=== PATIENT | female | born 1995 | race African-American/Black ===

== ENCOUNTER 2019-01-18 17:54 | Emergency (ER) | payer OTHER ==
[~2019-01-18] VITALS: Ht 160 cm; Wt 52.6 kg
[2019-01-18 17:54] VITALS: BP 98/63
== END 2019-01-18 19:00 | disposition home or self-care (01) ==
LOC: ER 17:54
DX: G89.29 Other chronic pain (principal); M25.571 Pain in right ankle and joints of right foot

== ENCOUNTER 2019-06-17 17:12 | Emergency (ER) | payer OTHER ==
[~2019-06-17] VITALS: Ht 162.6 cm; Wt 63.5 kg
[2019-06-17 17:34] LABS: URINE BILIRUBIN NEGATIVE (Negative); URINE BLOOD 2+ (Negative); URINE COLOR YELLOW; URINE GLUCOSE-RANDOM* NEGATIVE (Negative); URINE KETONES NEGATIVE (Negative); URINE PROTEIN (DIPSTICK) 1+ (Negative); URINE SPECIFIC GRAVITY 1.025 (1.005-1.035); URINE UROBILINOGEN 0.2 E.U./dl (0.2-1.0)
[2019-06-17 17:36] LABS: URINE LEUKOCYTES-REFLEX 2+ (Negative); URINE NITRITE-REFLEX POSITIVE (Negative)
[2019-06-17 17:37] LABS: URINE CLARITY HAZY
[2019-06-17 17:40] LABS: SQUAMOUS 0-3 Few /LPF (0-3)
[2019-06-17 17:41] LABS: BACTERIA-REFLEX >30 Many /HPF (None Seen); CASTS None Seen /LPF (None Seen); CRYSTALS None Seen /LPF (None Seen); URINE WBC-REFLEX >25 Many /HPF (0-5)
[2019-06-17] MEDS ORDERED: MACROBID 100 M100 MG PO (19:35)
[2019-06-17] MEDS ORDERED: PHENAZOPYRIDIN200 M2 PO (19:35)
[2019-06-17] MEDS ORDERED: MOBIC7.5 MG PO (19:35)
[2019-06-17 19:49] VITALS: BP 122/58
== END 2019-06-17 19:49 | disposition home or self-care (01) ==
LOC: ER 17:12
PROVIDERS: Emergency Medicine
DX: N39.0 Urinary tract infection, site not specified (principal)

== ENCOUNTER 2019-11-12 18:21 | Emergency (ER) | payer OTHER ==
[~2019-11-12] VITALS: Ht 160 cm; Wt 62.6 kg
[~2019-11-12 18:21] MED LIST: MACROBID 100 M100 MG PO; MOBIC7.5 MG PO; PHENAZOPYRIDIN200 M2 PO
[2019-11-12 18:50] LABS: URINE BILIRUBIN NEGATIVE (Negative); URINE BLOOD TRACE (Negative); URINE CLARITY CLEAR; URINE COLOR YELLOW; URINE GLUCOSE-RANDOM* NEGATIVE (Negative); URINE KETONES 3+ (Negative); URINE LEUKOCYTES-REFLEX 2+ (Negative); URINE NITRITE-REFLEX POSITIVE (Negative); URINE PROTEIN (DIPSTICK) TRACE (Negative); URINE SPECIFIC GRAVITY 1.025 (1.005-1.035)
[2019-11-12 18:53] LABS: URINE REDUCING SUBSTANCE NEGATIVE
[2019-11-12 19:00] LABS: BACTERIA-REFLEX >30 Many /HPF (None Seen); CASTS None Seen /LPF (None Seen); CRYSTALS None Seen /LPF (None Seen); SQUAMOUS 0-3 Few /LPF (0-3); URINE RBC 0-2 Rare /HPF (0-2); URINE WBC-REFLEX >25 Many /HPF (0-5)
[2019-11-12 19:49] LABS: CALCIUM 8.7 mg/dL (8.5-10.1); CREATININE 0.6 mg/dL (0.6-1.0); POTASSIUM 3.1 mmol/L (3.5-5.1)
[2019-11-12 19:54] LABS: ABSOLUTE NEUTROPHILS 9.7 thou/uL (1.4-8.2); BASOPHILS 0.3 % (0.0-2.0); EOSINOPHILS 0.2 % (0.0-3.0); HEMATOCRIT 34.5 % (37.0-47.0); HEMOGLOBIN 11.5 gm/dL (12.0-15.0); LYMPHOCYTES 7.7 % (24.0-44.0); MCH 31.4 pg (26.0-34.0); MCHC 33.4 g/dL (28.0-37.0); MCV 93.8 fL (80.0-100.0); MONOCYTES 9.3 % (1.0-8.0); PLATELET COUNT 294 thou/uL (150-400); POLYS 82.5 % (36.0-66.0); RBC 3.68 mil/uL (4.20-5.00); RDW 12.8 % (10.5-14.5); WBC 11.8 thou/uL (4.0-11.0)
[2019-11-12] MEDS ORDERED: VITAFOL-OB+DHA1 EACH PO (21:43)
[2019-11-12] MEDS ORDERED: KEFLEX500 M1 PO (21:43)
[2019-11-12] MEDS ORDERED: ZOFRAN ODT4 MG DISSOLVE (21:44)
[2019-11-12 22:05] VITALS: BP 115/67
== END 2019-11-12 22:05 | disposition home or self-care (01) ==
LOC: ER 18:21
PROVIDERS: Physician Assistant
DX: O23.41 Unspecified infection of urinary tract in pregnancy, first trimester (principal); O20.0 Threatened abortion; Z3A.01 Less than 8 weeks gestation of pregnancy

== ENCOUNTER 2020-02-23 06:54 | Inpatient (IN) | payer OTHER ==
[~2020-02-23] VITALS: Ht 162.6 cm; Wt 68.9 kg
[~2020-02-23 06:54] MED LIST changes: +KEFLEX500 M1 PO; +VITAFOL-OB+DHA1 EACH PO; +ZOFRAN ODT4 MG DISSOLVE
[2020-02-23 06:58] VITALS: BP 89/60
[2020-02-23 07:58] LABS: ABSOLUTE NEUTROPHILS 14.4 thou/uL (1.4-8.2); BASOPHILS 0.2 % (0.0-2.0); EOSINOPHILS 0.1 % (0.0-3.0); HEMATOCRIT 31.5 % (37.0-47.0); HEMOGLOBIN 10.5 gm/dL (12.0-15.0); LYMPHOCYTES 3.8 % (24.0-44.0); MCH 30.7 pg (26.0-34.0); MCHC 33.3 g/dL (28.0-37.0); MCV 92.1 fL (80.0-100.0); MONOCYTES 10.4 % (1.0-8.0); PLATELET COUNT 333 thou/uL (150-400); POLYS 85.5 % (36.0-66.0); RBC 3.42 mil/uL (4.20-5.00); RDW 13.1 % (10.5-14.5); WBC 16.9 thou/uL (4.0-11.0)
[2020-02-23 07:58] LABS: URINE BILIRUBIN NEGATIVE (Negative); URINE BLOOD 1+ (Negative); URINE CLARITY CLOUDY; URINE COLOR YELLOW; URINE GLUCOSE-RANDOM* NEGATIVE (Negative); URINE KETONES 3+ (Negative); URINE PROTEIN (DIPSTICK) 1+ (Negative)
[2020-02-23 08:02] LABS: URINE LEUKOCYTES-REFLEX 3+ (Negative); URINE NITRITE-REFLEX POSITIVE (Negative); URINE REDUCING SUBSTANCE NEGATIVE
[2020-02-23 08:03] LABS: BACTERIA-REFLEX >30 Many /HPF (None Seen); CASTS None Seen /LPF (None Seen); CRYSTALS None Seen /LPF (None Seen); SQUAMOUS 0-3 Few /LPF (0-3); URINE RBC 0-2 Rare /HPF (0-2)
[2020-02-23 08:04] LABS: CALCIUM 8.8 mg/dL (8.5-10.1); CREATININE 0.5 mg/dL (0.6-1.0); POTASSIUM 3.2 mmol/L (3.5-5.1)
[2020-02-23 08:10] LABS: ALBUMIN 2.3 g/dL (3.4-5.0); TOTAL BILIRUBIN 0.6 mg/dL (0.2-1.0); TOTAL PROTEIN 7.4 g/dL (6.4-8.2)
--- NOTE | 2020-02-23 09:09 | EKG ---
[facility] [place] [address] ELECTROCARDIOGRAM REPORT Name: HILTON ESQUIVEL Room #: [facility]..#: [id number] Admission: Attend Phys: Discharge: Date of : [birth year] Report #: [id number] THIS REPORT FOR: cc: KYE - Polly family physician/PCP KYE - Polly family physician/PCP Abrahan Huang MD [facility] ~ THIS REPORT FOR: //name// [facility] ED Test Date: 2020-02-23 Test Time: 07:24:51 Pat Name: HILTON ESQUIVEL Department: Room: Gender: F Argon Tester: lexa : 1995 Requested By: Rui Li Order Number: [id number] MD: Abrahan Huang Measurements Intervals [place] Rate: 118 P: 64 WI: 136 QRS: 41 QRSD: 80 T: 29 QT: 317 QTc: 445 Interpretive Statements Sinus tachycardia Borderline T wave abnormalities Baseline wander in lead(s) II,III,aVR,aVF No previous ECG available for comparison Electronically Signed On 02-23-2020 9:09:27 SUPERVISOR TYPE DISK QUALITY CONTROL by Abrahan Huang [email or web address] <ELECTRONICALLY SIGNED> By: Abrahan Huang MD, [facility] 02/23/2009 3 3 Abrahan Huang MD, FACC /EPI
[2020-02-23 12:14] VITALS: BP 101/67
[2020-02-23 13:21] VITALS: BP 104/67
[2020-02-23 17:14] VITALS: BP 93/55
[2020-02-23 19:08] VITALS: BP 95/60
--- NOTE | 2020-02-23 19:43 | NUR ---
Assumed pt care this am, VS stable, nausea and vomiting noted. Pain is managed with medications. Partial relief noted. Seen by surgery. endorsed to the night nurse.
--- NOTE | 2020-02-23 21:37 | NUR ---
AXOX4. INDEPENDENT WITH ADLs. PAIN MANAGED PER MD ORDER. NO S/S ACUTE DISTRESS NOTED OR REPORTED AT THIS TIME. CARE TRANSFERRED TO ANOTHER NURSE AT THIS TIME.
[2020-02-24 06:21] LABS: HEMATOCRIT 27.3 % (37.0-47.0); HEMOGLOBIN 9.1 gm/dL (12.0-15.0); MCH 30.9 pg (26.0-34.0); MCHC 33.2 g/dL (28.0-37.0); MCV 93.1 fL (80.0-100.0); RBC 2.93 mil/uL (4.20-5.00); RDW 12.9 % (10.5-14.5); WBC 13.4 thou/uL (4.0-11.0)
[2020-02-24 06:32] LABS: CALCIUM 8.2 mg/dL (8.5-10.1); CREATININE 0.5 mg/dL (0.6-1.0); POTASSIUM 3.3 mmol/L (3.5-5.1)
[2020-02-24 08:02] VITALS: BP 93/55
--- NOTE | 2020-02-24 13:19 | NUR ---
Received awake on bed. Due medications given as prescribed, able to swallow meds w/o difficulty. On room air. Vital signs stable. On MS, not on telemetry; no complains and signs of chest pain. On regular diet- tolerating well; no nausea, no vomiting noted. Continent of bowel and bladder, able to go to the toilet independently. Complained of pain, due PRN pain meds given as prescribed. With SL at L AC- intact and flushing well; on IV antibiotics. To continue monitoring patient.
[2020-02-24 14:34] VITALS: BP 98/55
[2020-02-24 16:41] VITALS: BP 94/63
[2020-02-24 20:51] VITALS: BP 101/61
--- NOTE | 2020-02-24 22:34 | NUR ---
1900 ASSUMED CARE OF PT AFTER BEDSIDE REPORT. 2099 BASELINE ASSESSMENT COMPLETED, PT PAINFUL WITH AMBULATION PAIN MEDS GIVEN PER JUN. PT STATES PAIN IS THE SAME SHE HAS EXPERIENCED FOR DAYS TO FLANK, NO NEW PAIN, NO BLOOD NOTICED WITH URINATION, WILL CONTINUE TO MONITOR WITH HOURLY ROUNDING
[2020-02-25 06:58] LABS: HEMATOCRIT 29.8 % (37.0-47.0); MCHC 33.5 g/dL (28.0-37.0); MCV 92.6 fL (80.0-100.0); RBC 3.22 mil/uL (4.20-5.00); WBC 9.2 thou/uL (4.0-11.0)
[2020-02-25 07:03] LABS: CALCIUM 9.1 mg/dL (8.5-10.1); CREATININE 0.6 mg/dL (0.6-1.0); POTASSIUM 3.8 mmol/L (3.5-5.1)
[2020-02-25 10:33] VITALS: BP 82/47
--- NOTE | 2020-02-25 10:58 | NUR ---
Received awake on bed. Due medications given as prescribed, able to swallow meds w/o difficulty. On room air. On MS, not on telemetry; no complains and signs of chest pain, crushing sensation and heaviness. On regular diet- tolerating well; no nausea, no vomiting and no abdominal pain noted. Continent of bowel and bladder, able to go to the toilet independently. With SL at L AC- intact and flushing well; on IV antibiotics. To continue monitoring patient. Complained of pain, due PRN pain meds given as prescribed. Pt seen and examined by Dr Parker, discharge order made; a/w physician to complete discharge instructions.
[2020-02-25 11:05] VITALS: BP 82/47
[2020-02-25 15:44] VITALS: BP 93/59
[2020-02-25] MEDS ORDERED: CEFUROXIME500 MG PO (16:45)
[2020-02-25] MEDS ORDERED: HYDROCODON-ACE1 EAC7 PO (16:45)
[2020-02-25 16:57] VITALS: BP 93/59
[2020-02-25] MEDS ORDERED: COLACE100 MG PO (17:13)
[2020-02-25] MEDS ORDERED: MIRALAX119 GM PO (17:13)
== END 2020-02-25 18:21 | disposition home or self-care (01) | DRG 690 ==
LOC: ER 06:54 → 4W 11:11 → EROBS 11:11 → 4W 13:23
PROVIDERS: Emergency Medicine; Nurse Practitioner Family; ADMIT Hospitalist; ATTEND Hospitalist
DX: N12 Tubulo-interstitial nephritis, not specified as acute or chronic (principal); K59.00 Constipation, unspecified; D64.9 Anemia, unspecified; K81.9 Cholecystitis, unspecified; Z79.899 Other long term (current) drug therapy
CPT/HCPCS: 10040